=== PATIENT | female | born 1960 ===

== ENCOUNTER 2017-09-13 07:48 | Outpatient (CLI) | payer OTHER | END 2017-09-13 07:59 | disposition home or self-care (01) | LOC: TOM 07:48 | DX: I10 Essential (primary) hypertension (principal); E53.9 Vitamin B deficiency, unspecified; E78.4 Other hyperlipidemia ==

== ENCOUNTER 2017-09-29 07:51 | Outpatient (CLI) | payer OTHER | END 2017-09-29 07:54 | disposition home or self-care (01) | LOC: NUCLEAR 07:51 | DX: R42 Dizziness and giddiness (principal); I67.9 Cerebrovascular disease, unspecified; I10 Essential (primary) hypertension ==

== ENCOUNTER 2018-08-24 11:15 | Emergency (ER) | payer OTHER ==
[~2018-08-24] VITALS: Ht 165.1 cm; Wt 80.7 kg
== END 2018-08-24 14:06 | disposition home or self-care (01) ==
LOC: ER 11:15
DX: R07.89 Other chest pain (principal); M79.18 Myalgia, other site

== ENCOUNTER 2019-04-24 10:08 | Outpatient (CLI) | payer OTHER | END 2019-04-24 10:11 | disposition home or self-care (01) | LOC: RAD 10:08 | DX: M25.512 Pain in left shoulder (principal); M25.561 Pain in right knee; M54.2 Cervicalgia ==

== ENCOUNTER 2020-10-29 15:05 | Outpatient (CLI) | payer OTHER | END 2020-10-29 15:14 | disposition home or self-care (01) | LOC: TOM 15:05 | PROVIDERS: ATTEND Specialist | DX: G93.89 Other specified disorders of brain (principal); I10 Essential (primary) hypertension; E78.49 Other hyperlipidemia; R20.2 Paresthesia of skin ==

== ENCOUNTER 2021-08-03 08:16 | Outpatient (CLI) | payer OTHER | END 2021-08-03 08:27 | disposition home or self-care (01) | LOC: MAMO-SONO 08:16 | PROVIDERS: ATTEND General Practice | DX: I10 Essential (primary) hypertension (principal); Z12.31 Encounter for screening mammogram for malignant neoplasm of breast; R00.2 Palpitations; Z13.1 Encounter for screening for diabetes mellitus; E03.8 Other specified hypothyroidism; N64.59 Other signs and symptoms in breast ==